=== PATIENT | female | born 1975 | race Two or more races ===

== ENCOUNTER → 2019-01-04 | Outpatient (CLI) | payer OTHER ==
--- NOTE | 2019-01-04 08:00 | US ---
EXAMINATION TYPE: US thyroid st tissue head/neck DATE OF EXAM: 01/04/2019 COMPARISON: NONE CLINICAL HISTORY: E04.9 goiter. Lump. GLAND SIZE: Right Lobe: 3.6 x 1.7 x 2.0 cm Overall Parenchyma: homogenous Left Lobe: 3.7 x 1.4 x 2.3 cm Overall Parenchyma: homogeneous Isthmus Thickness: 0.4 cm NODULES RIGHT: # of nodules measured on right: 0 LEFT: # of nodules measured on left: 0 ISTHMUS: # of nodules measured in the isthmus: 0 Bilateral neck scanned, no evidence of lymphadenopathy. IMPRESSION: Homogeneous thyroid gland without discrete nodule.
--- NOTE | 2019-01-04 08:37 | US ---
EXAMINATION TYPE: US liver DATE OF EXAM: 01/04/2019 COMPARISON: 07/11/2014 CLINICAL HISTORY: R74.8 Abnormal levels of other serum, R16.0 Hepatomegaly. Hepatomegaly elevated henrietta er enzymes. EXAM MEASUREMENTS: Liver Length: 17.12 cm Gallbladder Wall: 0.3 cm CBD: 0.3 cm Right Kidney: 10.9 x 4.7 x 4.4 cm Pancreas: Tail obscured by overlying bowel gas Liver: There is increased echogenicity of the hepatic parenchyma with diminished visualization of the portal triads most commonly relating to hepatic steatosis and limiting evaluation for underlying hep atic masses. Hypoechoic area adjacent to gallbladder seen on previous exam 4.4 x 1.7 x 3.5cm. This a virgen is increase in size as it measured 2.4 x 3.6 x 3.0 cm on the prior. Gallbladder: No calculi seen. Evidence for sonographic Wilson's sign: No CBD: wnl Right Kidney: wnl IMPRESSION: Sonographic findings most commonly related to mild degree hepatic steatosis. Correlate with liver fun ction tests. Probable focal fatty sparing within the liver is noted on the prior exam of 07/11/2014. Th is area has increased in size from the prior and could be confirmed with three-phase abdominal CT.
== END | disposition home or self-care (01) ==
LOC: RADUSWWP 07:00
PROVIDERS: ATTEND Family Medicine
DX: K76.0 Fatty (change of) liver, not elsewhere classified (principal); R74.8 Abnormal levels of other serum enzymes; E04.9 Nontoxic goiter, unspecified
CPT/HCPCS: 76536; 76705

== ENCOUNTER 2020-02-12 13:05 | Emergency (ER) | payer OTHER ==
[2020-02-12 13:20] VITALS: TEMP 98.3
[2020-02-12] MEDS ORDERED: LORazepam 2 MG/ML INJ IV STA (13:45)
[2020-02-12] MEDS ORDERED: SODIUM CHLORIDE 0.9% 1,000 ML IV ONE (13:52)
--- NOTE | 2020-02-12 13:52 | ED ---
General Adult HPI - General Chief complaint: Syncope Stated complaint: near syncope, numbness Time Seen by Provider: 02/12/20 13:15 Source: patient, RN notes reviewed, old records reviewed Mode of arrival: wheelchair Limitations: no limitations - History of Present Illness Initial comments: This is a 44-year-old female who presents emergency Department stating she had a near syncopal episode. 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 Patient states she was standing there her legs became very weak and she sat down and she stated her vision went kind of black for about 2-3 seconds and then it resolved but she still felt extremely weak and became very anxious at this point. Patient does have a history of anxiety and now she doesn't know if she's having symptoms of generalized weakness because of her anxiety or because of something else. Patient denies any headache patient denies numbness or focal weakness. Patient denies chest pain or difficulty breathing patient denies shortness of breath per patient denies any recent fever chills or cough per patient denies abdominal p ain patient denies nausea vomiting diarrhea. - Related Data Home Medications Medication Instructions Recorded Confirmed Atorvastatin [Lipitor] 20 mg PO DAILY 02/12/20 02/12/20 Chlorthalidone [Hygroton] 25 mg PO DAILY 02/12/20 02/12/20 Allergies Allergy/AdvReac Type Severity Reaction Status Date / Time No Known Allergies Allergy Verified 02/12/20 14:41 Review of Systems ROS Statement: Those systems with pertinent positive or pertinent negative responses have been documented in the HPI. ROS Other: All systems not noted in ROS Statement are negative. Past Medical History Past Medical History: Thyroid Disorder Additional Past Medical History / Comment(s): Graves Disease History of Any Multi-Drug Resistant Organisms: None Reported Past Surgical History: Tubal Ligation Past Psychological History: No Psychological Hx Reported Smoking Status: Current every day smoker Past Alcohol Use History: Occasional Past Drug Use History: None Reported General Exam - General Exam Comments Initial Comments: GENERAL: Patient is well-developed and well-nourished. Patient is nontoxic and well- hydrated and is in mild distress. ENT: Neck is soft and supple. No significant lymphadenopathy is noted. Oropharynx is clear. Moist mucous membranes. Neck has full range of motion without eliciting any pain. EYES: The sclera were anicteric and conjunctiva were pink and moist. Extraocular movements were intact and pupils were equal round and reactive to light. Eyelids were unremarkable. PULMONARY: Unlabored respirations. Good breath sounds bilaterally. No audible rales rho nchi or wheezing was noted. CARDIOVASCULAR: There is a regular rate and rhythm without any murmurs gallops or rubs. ABDOMEN: Soft and nontender with normal bowel sounds. SKIN: Skin is clear with no lesions or rashes and otherwise unremarkable. NEUROLOGIC: Patient is alert and oriented x3. Cranial nerves II through XII are grossly intact. Motor and sensory are also intact. Normal speech, volume and content. Symmetrical smile. MUSCULOSKELETAL: Normal extremities with adequate strength and full range of motion. LYMPHATICS: No significant lymphadenopathy is noted PSYCHIATRIC: Patient appears very anxious. Limitations: no limitations Course Vital Signs 02/12/20 02/12/20 13:15 14:29 Temperature 98.3 F Pulse Rate 84 Pulse Rate [ 87 Left Sitting Pulse Oximetery ] Pulse Rate [ 90 Left Standing Pulse Oximetery ] Pulse Rate [ 92 Left Supine Pulse Oximetery ] Respiratory 18 Rate Blood Pressure 151/87 Blood Pressure 139/96 [Left Arm Sitting] Blood Pressure 143/93 [Left Arm Supine] Blood Pressure 134/96 [Left Arm] O2 Sat by Pulse 100 Oximetry Medical Decision Making - Medical Decision Making EKG shows normal sinus rhythm at 80 bpm LA interval is 140 QRS 78 QT interval 364 QTC is 440. Patient's EKG shows no ST segment elevation or depression or T wave abnormalities are noted. Chest x-ray shows no acute abnormality. Patient was able to ambulate without problem in the emergency department. - Lab Data Result diagrams: 02/12/20 13:53 02/12/20 13:53 Lab Results 02/12/20 02/12/20 02/12/20 Range/Units 13:53 13:53 13:53 WBC 9.4 (3.8-10.6) k/uL RBC 4.65 (3.80-5.40) m/uL Hgb 15.4 (11.4-16.0) gm/dL Hct 48.3 H (34.0-46.0) % MCV 103.8 H (80.0-100.0) fL MCH 33.1 (25.0-35.0) pg MCHC 31.9 (31.0-37.0) g/dL RDW 13.2 (11.5-15.5) % Plt Count 220 (150-450) k/uL Neutrophils % 56 % Lymphocytes % 35 % Monocytes % 6 % Eosinophils % 2 % Basophils % 1 % Neutrophils # 5.2 (1.3-7.7) k/uL Lymphocytes # 3.3 (1.0-4.8) k/uL Monocytes # 0.5 (0-1.0) k/uL Eosinophils # 0.2 (0-0.7) k/uL Basophils # 0.1 (0-0.2) k/uL Macrocytosis Slight PT 10.0 (9.0-12.0) sec INR 1.0 (<1.2) APTT 22.7 (22.0-30.0) sec Sodium 138 (137-145) mmol/L Potassium 4.2 (3.5-5.1) mmol/L Chloride 105 (98-107) mmol/L Carbon Dioxide 21 L (22-30) mmol/L Anion Gap 12 mmol/L BUN 8 (7-17) mg/dL Creatinine 0.78 (0.52-1.04) mg/dL Est GFR (CKD-EPI)AfAm >90 (>60 ml/min/1.73 sqM) Est GFR (CKD-EPI)NonAf >90 (>60 ml/min/1.73 sqM) Glucose 124 H (74-99) mg/dL Calcium 9.7 (8.4-10.2) mg/dL Magnesium 1.9 (1.6-2.3) mg/dL Total Bilirubin 0.5 (0.2-1.3) mg/dL AST 132 H (14-36) U/L ALT 73 H (4-34) U/L Alkaline Phosphatase 101 (38-126) U/L Troponin I (0.000-0.034) ng/mL Total Protein 8.0 (6.3-8.2) g/dL Albumin 4.7 (3.5-5.0) g/dL Urine Color Urine Appearance (Clear) Urine pH (5.0-8.0) Ur Specific [place] (1.001-1.035) Urine Protein (Negative) Urine Glucose (UA) (Negative) Urine Ketones (Negative) Urine Blood (Negative) Urine Nitrite (Negative) Urine Bilirubin (Negative) Urine Urobilinogen (<2.0) mg/dL Ur Leukocyte Esterase (Negative) 02/12/20 02/12/20 Range/Units 13:53 14:26 WBC (3.8-10.6) k/uL RBC (3.80-5.40) m/uL Hgb (11.4-16.0) gm/dL Hct (34.0-46.0) % MCV (80.0-100.0) fL MCH (25.0-35.0) pg MCHC (31.0-37.0) g/dL RDW (11.5-15.5) % Plt Count (150-450) k/uL Neutrophils % % Lymphocytes % % Monocytes % % Eosinophils % % Basophils % % Neutrophils # (1.3-7.7) k/uL Lymphocytes # (1.0-4.8) k/uL Monocytes # (0-1.0) k/uL Eosinophils # (0-0.7) k/uL Basophils # (0-0.2) k/uL Macrocytosis PT (9.0-12.0) sec INR (<1.2) APTT (22.0-30.0) sec Sodium (137-145) mmol/L Potassium (3.5-5.1) mmol/L Chloride (98-107) mmol/L Carbon Dioxide (22-30) mmol/L Anion Gap mmol/L BUN (7-17) mg/dL Creatinine (0.52-1.04) mg/dL Est GFR (CKD-EPI)AfAm (>60 ml/min/1.73 sqM) Est GFR (CKD-EPI)NonAf (>60 ml/min/1.73 sqM) Glucose (74-99) mg/dL Calcium (8.4-10.2) mg/dL Magnesium (1.6-2.3) mg/dL Total Bilirubin (0.2-1.3) mg/dL AST (14-36) U/L ALT (4-34) U/L Alkaline Phosphatase (38-126) U/L Troponin I <0.012 (0.000-0.034) ng/mL Total Protein (6.3-8.2) g/dL Albumin (3.5-5.0) g/dL Urine Color Yellow Urine Appearance Clear (Clear) Urine pH 6.0 (5.0-8.0) Ur Specific [place] 1.009 (1.001-1.035) Urine Protein Negative (Negative) Urine Glucose (UA) Negative (Negative) Urine Ketones Negative (Negative) Urine Blood Negative (Negative) Urine Nitrite Negative (Negative) Urine Bilirubin Negative (Negative) Urine Urobilinogen <2.0 (<2.0) mg/dL Ur Leukocyte Esterase Negative (Negative) Disposition Clinical Impression: Vasovagal syncope, Anxiety Disposition: HOME SELF-CARE Condition: Good Instructions (If sedation given, give patient instructions): Hypotension (ED) Is patient prescribed a controlled substance at d/c from ED?: No Referrals: Uriah Belle MD [Primary Care Provider] - 1-2 days Time of Disposition: 14:57
--- NOTE | 2020-02-12 14:17 | XR ---
EXAMINATION TYPE: XR chest 2V DATE OF EXAM: 02/12/2020 COMPARISON: Chest x-ray August 23, 2015. CT chest January 01, 2016. HISTORY: Chest pain today. TECHNIQUE: Frontal and lateral views of the chest are obtained. FINDINGS: There is no focal air space opacity, pleural effusion, or pneumothorax seen. The cardiac silhouette size is upper limits of normal. Overlying EKG leads are in current study. The osseous st ructures are intact. IMPRESSION: No acute process. No significant change from prior.
[2020-02-12 14:19] LABS: Basophils # (A) 0.1 k/uL (0-0.2); Basophils % (A) 1 %; Eosinophils # (A) 0.2 k/uL (0-0.7); Eosinophils % (A) 2 %; HCT 48.3 % (34.0-46.0); HGB 15.4 gm/dL (11.4-16.0); Lymphocytes # (A) 3.3 k/uL (1.0-4.8); Lymphocytes % (A) 35 %; MCH 33.1 pg (25.0-35.0); MCHC 31.9 g/dL (31.0-37.0); MCV 103.8 fL (80.0-100.0); Macrocytosis Slight; Mean Platelet Volume 8.9; Monocytes # (A) 0.5 k/uL (0-1.0); Monocytes % (A) 6 %; Neutrophils # (A) 5.2 k/uL (1.3-7.7); Neutrophils % (A) 56 %; Platelet Count 220 k/uL (150-450); RBC 4.65 m/uL (3.80-5.40); RDW 13.2 % (11.5-15.5); WBC 9.4 k/uL (3.8-10.6)
[2020-02-12 14:27] LABS: ALT 73 U/L (4-34); AST 132 U/L (14-36); African American GFR (CKD) >90 (>60 ml/min/1.73 sqM); Albumin 4.7 g/dL (3.5-5.0); Alkaline Phosphatase 101 U/L (38-126); Anion Gap 12 mmol/L; Blood Urea Nitrogen 8 mg/dL (7-17); Calcium 9.7 mg/dL (8.4-10.2); Carbon Dioxide 21 mmol/L (22-30); Chloride 105 mmol/L (98-107); Glucose 124 mg/dL (74-99); Magnesium 1.9 mg/dL (1.6-2.3); Non-African American GFR(CKD) >90 (>60 ml/min/1.73 sqM); Potassium 4.2 mmol/L (3.5-5.1); Sodium 138 mmol/L (137-145); Total Bilirubin 0.5 mg/dL (0.2-1.3)
[2020-02-12 14:29] LABS: Partial Thromboplastin Time 22.7 sec (22.0-30.0)
[2020-02-12 14:42] LABS: Appearance,Urine Clear (Clear); Bilirubin,Urine Negative (Negative); Blood,Urine Negative (Negative); Color,Urine Yellow; Glucose,Urine (UA) Negative (Negative); Ketones,Urine Negative (Negative); Leukocyte Esterase,Urine Negative (Negative); Nitrite,Urine Negative (Negative); Protein,Urine Negative (Negative); Specific Gravity,Urine 1.009 (1.001-1.035); Urobilinogen,Urine <2.0 mg/dL (<2.0)
[2020-02-12 15:25] VITALS: BP 132/79; PULSE 86; RESP 16
== END 2020-02-12 15:25 | disposition home or self-care (01) ==
LOC: EC 13:05
DX: F41.9 Anxiety disorder, unspecified (principal); R55 Syncope and collapse; F17.200 Nicotine dependence, unspecified, uncomplicated
CPT/HCPCS: 36415; 93005; 80053; 83735; 84484; 85025; 85610; 85730; 81003; 71046; 96374; 96361; 99284; J2060

== ENCOUNTER → 2020-11-13 | Outpatient (CLI) | payer OTHER ==
--- NOTE | 2020-11-13 16:20 | US ---
EXAMINATION TYPE: US thyroid st tissue head/neck DATE OF EXAM: 11/13/2020 COMPARISON: NONE CLINICAL HISTORY: E04.9 Goiter. GLAND SIZE: Right Lobe: 4.3 x 1.9 x 2.2 cm Overall Parenchyma: homogenous Left Lobe: 4.1 x 1.6 x 1.6 cm Overall Parenchyma: homogeneous Isthmus Thickness: 0.4 cm NODULES RIGHT: # of nodules measured on right: 0 LEFT: # of nodules measured on left: 0 ISTHMUS: # of nodules measured in the isthmus: 0 Bilateral neck scanned, no evidence of lymphadenopathy. IMPRESSION: 1. Normal thyroid ultrasound
== END | disposition home or self-care (01) ==
LOC: RADUSWWP 15:19
PROVIDERS: ATTEND Family Medicine
DX: E04.9 Nontoxic goiter, unspecified (principal)
CPT/HCPCS: 76536

== ENCOUNTER → 2023-07-13 | Outpatient (CLI) | payer OTHER ==
--- NOTE | 2023-07-15 08:13 | MM ---
Reason for Exam: Screening (asymptomatic). Baseline mammogram. Patient History: Menarche at age 10. First Full-Term at age 20. Postmenopausal. Risk Values: Merlyn 5 year model risk: 0.7%. NCI Lifetime model risk: 6.3%. Prior Study Comparison: Patient's first Mammogram. Tissue Density: There are scattered fibroglandular densities. Findings: Analyzed By CAD. Nodular densities seen bilaterally upper outer quadrants likely reflect intramammary lymph nodes however this should be confirmed utilizing ultrasound. Skeletal septations are present. Overall Assessment: Incomplete: need additional imaging evaluation, BI-RAD 0 Management: Diagnostic Breast Ultrasound of both breasts. . Patient should continue monthly self-breast exams. A clinical breast exam by your physician is recommended on an annual basis. This exam should not preclude additional follow-up of suspicious palpable abnormalities. Note on Merlyn scores and lifetime risk: 1. A Merlyn score greater than 3% is considered moderate risk. If this is the case, consider specialist referral to assess eligibility for a risk reducing agent. 2. If overall lifetime risk for the development of breast cancer is 20% or higher, the patient may qualify for future screening with alternating mammogram and breast MRI. Electronically signed and approved by: Ashu Lester M.D. Radiologis
== END | disposition home or self-care (01) ==
LOC: RADMAMWWP 14:50
PROVIDERS: ATTEND Family Medicine
DX: Z12.31 Encounter for screening mammogram for malignant neoplasm of breast (principal); Z78.0 Asymptomatic menopausal state
CPT/HCPCS: 77063; 77067

== ENCOUNTER → 2023-07-19 | Outpatient (CLI) | payer OTHER ==
--- NOTE | 2023-07-19 09:37 | USB ---
Reason for Exam: Additional evaluation requested from abnormal screening. Patient History: Menarche at age 10. First Full-Term at age 20. Postmenopausal. Risk Values: Merlyn 5 year model risk: 0.7%. NCI Lifetime model risk: 6.3%. Technique: Method: Targeted. Prior Study Comparison: 07/13/2023 Bilateral MG 3D screening mammo w/cad, [facility]. Findings: The upper outer quadrant of both breasts, the axilla of both breasts and the retroareolar of both breasts were scanned. Targeted ultrasound bilateral upper outer quadrant including scanning of the subareolar region and axilla. On the right, * a prominent, thickened intramammary lymph node at the 9:00 position, 9 cm from the nipple measures 1.1 x 0.6 x 0.8 cm. * Prominent lymph node in the right axilla shows uniform cortical thickening up to 3 mm but large fatty hilum. Likely reactive/post inflammatory. * No other solid or cystic lesion. On the left. * Prominent axillary lymph node showing mild uniform cortical thickening up to 4 mm but maintained fatty hilum, likely reactive/post inflammatory. * Mildly thickened but nonenlarged intramammary lymph node 1:00 position, 12 cm from the nipple measuring 8 x 6 x 5 mm. * No other solid or cystic lesion. Overall Assessment: Probably benign, BI-RAD 3 Management: Diagnostic Mammogram of both breasts in 6 months. A clinical breast exam by your physician is recommended on an annual basis and results should be correlated with mammographic findings. This exam should not preclude additional follow-up of suspicious palpable abnormalities. Results were given to the patient verbally at the time of exam. Electronically signed and approved by: Lucho Perera M.D. Radiologist
== END | disposition home or self-care (01) ==
LOC: RADUSWWP 08:36
PROVIDERS: ATTEND Surgery
DX: R92.8 Other abnormal and inconclusive findings on diagnostic imaging of breast (principal); Z78.0 Asymptomatic menopausal state

== ENCOUNTER → 2024-08-07 | Outpatient (CLI) | payer OTHER ==
--- NOTE | 2024-08-07 09:35 | CTL ---
EXAMINATION TYPE: CT Low Dose Lung DATE OF EXAM: 08/07/2024 9:29 AM COMPARISON: 12/24/2015. CLINICAL INDICATION: Female, 49 years old with history of Z12.2 SCREENING LUNG CA F17.210 CURRENT SM OKER; Current smoker. 08/07 PPD x35yrs., history of tobacco use. TECHNIQUE: Multiple axial non-contrast scans were obtained from approximately the lung apices through the upper abdomen. Coronal and sagittal reformatted images were obtained. Low dose technique was uti lized. MIP were created on a separate workstation and submitted for review. CT DLP: 150.1 mGycm, Automated exposure control for dose reduction was used. CT Contrast: Contrast used: None Oral contrast used: None FINDINGS: Lack of intravenous contrast and low dose technique limits the evaluation of the vascular and soft ti ssue structures. LUNGS: No evidence of pulmonary fibrosis. No evidence of focal consolidation, pneumothorax or pleural effusion. Centrilobular emphysema changes. Nodules: RUL: None. RML: None. RLL: None. SHANDA: None. LLL: None. AIRWAY: Patent and unremarkable. HEART: Size within normal limits. Mild coronary artery calcifications present. MEDIASTINUM: No gross evidence of adenopathy. VASCULATURE: No aortic aneurysm. MUSCULOSKELETAL: Mild disc degeneration changes are present throughout the thoracolumbar spine. Mild scoliosis changes spine. SOFT TISSUES/LYMPH NODES: Unremarkable. LOWER NECK: No significant findings. UPPER ABDOMEN: Diffuse low-attenuation to the liver parenchyma. IMPRESSION: 1. No clinically significant pulmonary nodules. 2. Mild emphysema. 3. Hepatic steatosis. CT LUNG RAD AND CT CHEST RECOMMENDATION: Lung-Rad 1 Negative: Continue annual screening with LDCT in 12 months. S Modifier (other clinically significant findings): None Recommend smoking cessation (if current smoker), or continuation of smoking cessation (if prior smoke r). Annual screening for lung cancer with low-dose computed tomography is recommended in adults ages 55 to 77 years who have a 30 pack-year smoking history and currently smoke or have quit within the pa st 15 years. Screening should be discontinued once a person has not smoked for 15 years or develops a health problem that substantially limits life expectancy or the ability or willingness to have curat lidai lung surgery. Lung rads 2021 [email or web address] [email or web address], , 08/07/2024 9:33 AM
== END | disposition home or self-care (01) ==
LOC: RADCTMAIN 08:51
PROVIDERS: ATTEND Family Medicine
DX: Z12.2 Encounter for screening for malignant neoplasm of respiratory organs (principal); J43.2 Centrilobular emphysema; K76.0 Fatty (change of) liver, not elsewhere classified; F17.210 Nicotine dependence, cigarettes, uncomplicated
CPT/HCPCS: 71271